=== PATIENT | female | born 1980 | race Caucasian/White ===

== ENCOUNTER 2021-11-13 20:09 | Emergency (ER) | payer OTHER ==
[~2021-11-13 20:09] MED LIST: BRIN10TA PO; BUSPIRONE HCL15 MG PO; COLACE100 MG PO; COLESTID 1GM TAB1 GM PO; MOTRIN600 MG PO; ORTHO-CYCLEN 21 EACH PO; PERCOCET 5-3251 EACH PO; PRILOSEC20 MG PO; VIIBRYD40 MG PO; ZYRTEC10 M3 PO
[2021-11-13 21:06] LABS: BASOPHIL 0.2 % (0-2); EOSINOPHIL 0.1 % (0-5); HCT 42.5 % (37.0-47.0); HGB 14.4 g/dl (12.5-16.0); LYMPHOCYTE 16.8 % (15-48); MCH 29.6 pg (25.0-31.0); MCHC 33.9 g/dL (32.0-36.0); MCV 87.4 fL (78.0-100.0); MONOCYTE 2.5 % (0-12); MPV 9.1 fL (6.0-9.5); NRBC 0; PLT 369 K/uL (150-400); RBC 4.86 M/uL (4.20-5.40); RDW 12.9 % (11.5-14.0); WBC 12.6 K/uL (4.0-10.5)
[2021-11-13 21:19] LABS: ALBUMIN 3.7 g/dL (3.4-5.0); ALKALINE PHOSHATASE 75 U/L (46-116); ALT 27 U/L (14-59); AST 12 U/L (15-37); BILIRUBIN - TOTAL 0.2 mg/dL (0.2-1.0); BUN 16 mg/dL (7-18); BUN/CREAT RATIO (CALC) 20.5 RATIO; CHLORIDE 102 mmol/L (98-107); CO2 (BICARBONATE) 27 mmol/L (21-32); CREATININE 0.78 mg/dL (0.51-0.95); GLOBULIN (CALCULATION) 4.2 g/dL; GLUCOSE 134 mg/dL (74-106); TOTAL PROTEIN 7.9 g/dL (6.4-8.2)
== END 2021-11-13 23:05 | disposition home or self-care (01) ==
LOC: FER 20:09
PROVIDERS: Physician Assistant Medical
DX: R03.0 Elevated blood-pressure reading, without diagnosis of hypertension (principal); R51.9 Headache, unspecified
CPT/HCPCS: 36415; 71045; 80053; 84484; 85025; 93005; C9113; J7030